=== PATIENT | male | born 1950 | race Caucasian/White ===

== ENCOUNTER 2018-12-06 04:54 | Observation (INO) ==
[2018-12-06] MEDS ORDERED: ASPIRIN PO ONE (05:01)
--- NOTE | 2018-12-06 05:07 | PROVIDER DOCUMENTATION ---
HPI-Chest Pain - General Chief Complaint: Chest Pain Stated Complaint: CHEST PAINS Time Seen by Provider: 12/06/18 05:07 Source: patient Allergies/Adverse Reactions: Patient Allergies Allergy/AdvReac Type Severity Reaction Status Date / Time Iodinated Contrast- Oral and AdvReac SWELLING Verified 12/06/18 05:00 IV Dye [IV Dye] - History of Present Illness-CP Nature of Presenting Problem: Patient is a 68 year old white male with history of diabetes, hyperlipidemia, and tachycardia who presents with 7/10 sharp left sided chest pain since last night. Denies history of CAD. Patient given 325mg aspirin on arrival. Followed by Dr. Cabral. Location: reports: other (left sided chest pain- tender to palpation) Quality of Pain: reports: sharp Onset/Duration: this evening Timing: still present Context/Activities at Onset: reports: none Modifying Factors: improves with: palpation Associated Symptoms: denies: diaphoresis, fever/chills, nausea, vomiting, weakness Nitro Today/Relief: no nitro taken today Aspirin Treatment Today: provided by ED Prior Chest Pain/Cardiac Workup: reports: no prior cardiac workup Recently Seen Here or By Another Healthcare Provider: No Review of Systems - Adult - REVIEW OF SYSTEMS - ADULT Constitutional: denies: chills, fever Eyes: reports: no symptoms reported Ears, Nose, Mouth & Throat: reports: no symptoms reported Cardiovascular: reports: see HPI Respiratory: reports: shortness of breath. denies: cough Gastrointestinal: denies: abdominal pain, nausea, vomiting Genitourinary: denies: dysuria Integumentary: reports: no symptoms reported Psychiatric: reports: anxiety Endocrine: reports: no symptoms reported Hematologic/Lymphatic: reports: no symptoms reported Allergic/Immunologic: reports: no symptoms reported All Other Systems: Reviewed and Negative Past History - Adult - PAST MEDICAL HISTORY-ADULT Review of Records: reports: Old Records Reviewed, Nursing Assessment Review, Me dications Reviewed, Social history reviewed & non-contributory. Major Childhood Illnesses: reports: denies history Cardiovascular: reports: other (tachycardia) Respiratory: reports: denies history Gastrointestinal: reports: denies history Genitourinary: reports: denies history Musculoskeletal: reports: denies history Neurological: reports: denies history Psychiatric: reports: denies history Endocrine/Immune: reports: denies history Diabetes Type: Type 2 - PRIOR SURGERIES/PROCEDURES Surgical/Procedure History: reports: orthopedic (extremity) (shoulder surgeries) Physical Exam-General - PHYSICAL EXAM-ADULT Initial Vital Signs Reviewed: Yes - CONSTITUTIONAL General Appearance: alert, no apparent distress, anxious, other (nondiaphoretic) - HEAD, EARS, NOSE, MOUTH & THROAT HENMT: normocephalic/atraumatic, moist mucous membranes - NECK Neck: non-tender, full range of motion, supple - RESPIRATORY Respiratory: lungs clear, other (tender to palpation over left chest, no crepitus) - CARDIOVASCULAR Cardiovascular: regular rate, rhythm - GASTROINTESTINAL (ABDOMEN) Abdominal Exam: normal bowel sounds, non tender, soft - LYMPHATIC Lymphatic: no adenopathy - MUSCULOSKELETAL Back Exam: normal inspection, no CVA tenderness Extremity: normal range of motion, non-tender, other (no homans) Peripheral Pulses: radial (R): 2+, radial (L): 2+ - SKIN Integumentary: normal color, normal turgor, warm/dry - NEUROLOGIC Neurologic: grossly normal - PSYCHIATRIC Psych/Mental Status: anxious - HEART Score HEART Score: History: Slightly Suspicious HEART Score: ECG: Normal HEART Score: Age: > or = 65 Years HEART Score: Risk Factors for Atherosclerotic Disease: > or = 3 Risk Factors or History of Atherosclerotic Disease HEART Score: Troponin: < or = Normal Limit Total HEART Score:: 4 Progress - PLAN OF CARE/RESULTS Progress/Plan/Lab Results: Vital Signs - 8 hr 12/06/18 04:56 Temperature 97.6 F Pulse Rate 66 Respiratory Rate 20 Blood Pressure 179/90 O2 Sat by Pulse Oximetry 99 Laboratory Results - last 24 hr 12/06/18 12/06/18 12/06/18 05:09 05:09 05:09 WBC 8.21 RBC 4.59 L Hgb 14.4 Hct 40.8 L MCV 88.9 MCH 31.4 H MCHC 35.3 RDW Std Deviation 12.8 Plt Count 277 MPV 10.1 Immature Gran % (Auto) 0.1 Neut % (Auto) 40.5 L Lymph % (Auto) 36.9 [place] % (Auto) 10.6 H Eos % (Auto) 10.7 H Baso % (Auto) 1.2 H Immature Gran # (Auto) 0.01 Neut # (Auto) 3.32 Lymph # (Auto) 3.03 [place] # (Auto) 0.87 H Eos # (Auto) 0.88 H Baso # (Auto) 0.10 PT INR PTT (Actin FS) D-Dimer, Quantitative Sodium 138 Potassium 4.2 Chloride 102 Carbon Dioxide 24 L Anion Gap 12 BUN 18 Creatinine 1.2 Estimated GFR/1.73 m2 > 60 BUN/Creatinine Ratio 15 Glucose 213 H Calculated Osmolality 284 Calcium 9.3 Total Bilirubin 0.30 AST 20 ALT 19 Alkaline Phosphatase 52 Creatine Kinase 77 Troponin T [id number]-[id number] Pept 53 Total Protein 7.3 Albumin 4.3 Globulin 3.0 Albumin/Globulin Ratio 1.0 12/06/18 12/06/18 05:09 05:09 WBC RBC Hgb Hct MCV MCH MCHC RDW Std Deviation Plt Count MPV Immature Gran % (Auto) Neut % (Auto) Lymph % (Auto) [place] % (Auto) Eos % (Auto) Baso % (Auto) Immature Gran # (Auto) Neut # (Auto) Lymph # (Auto) [place] # (Auto) Eos # (Auto) Baso # (Auto) PT 11.8 INR 0.83 PTT (Actin FS) 28.9 D-Dimer, Quantitative 0.30 Sodium Potassium Chloride Carbon Dioxide Anion Gap BUN Creatinine Estimated GFR/1.73 m2 BUN/Creatinine Ratio Glucose Calculated Osmolality Calcium Total Bilirubin AST ALT Alkaline Phosphatase Creatine Kinase Troponin T < 0.010 Cdg-[id number]-Wuzucxkafjj Pept Total Protein Albumin Globulin Albumin/Globulin Ratio Orders Category Date Time Status Cardiac Monitoring DIRECTED Care 12/06/18 05:02 Active Oxygen Therapy- ED Nursing DIRECTED Care 12/06/18 05:02 Active Saline Loc NOW Care 12/06/18 05:02 Active CHEST-PORTABLE [RAD] Stat Exams 12/06/18 05:23 Taken CBC WITH ELECTRONIC DIFF [HEME] Stat Lab 12/06/18 05:09 Completed CK PROFILE [SP CHEM] Stat Lab 12/06/18 05:09 Completed COMPREHENSIVE METABOLIC PANEL [CHEM] Stat Lab 12/06/18 05:09 Completed D-DIMER [COAG] Stat Lab 12/06/18 05:09 Completed PRO B-NATRIURETIC PEPTIDE Stat Lab 12/06/18 05:09 Completed PROTIME WITH INR [COAG] Stat Lab 12/06/18 05:09 Completed PTT [COAG] Stat Lab 12/06/18 05:09 Completed TROPONIN T Stat Lab 12/06/18 05:09 Completed Aspirin Med 12/06/18 05:01 Discontinued 325 mg PO NOW ONE Ketorolac [Toradol] Med 12/06/18 05:27 Discontinued 30 mg IV NOW ONE Morphine Med 12/06/18 05:58 Discontinued 4 mg IV NOW ONE Ondansetron [Zofran] Med 12/06/18 05:58 Discontinued 4 mg IV STAT ONE CP/SOB/Palp >45 yrs of Age Stat Oth 12/06/18 05:01 Ordered EKG [EKG] Stat Ther 12/06/18 05:02 Draft EKG [EKG] Stat Ther 12/06/18 06:00 Draft Result Diagrams: 12/06/18 05:09 12/06/18 05:09 - EKG 1 Time of EKG reading by physician:: 05:00 EKG Read and Signed by:: Dmitri Sutherland Rate: 65 Rhythm: NSR Gardner: normal SC Interval: normal Comments: no STEMI - CONSULTS/PCP/HOSPITALIST Notification #1 *Consult/PCP/Hospitalist*: Dr. Brunson, hospitalist Time Discussed: 06:20 Consult Disposition: Admit Departure - Departure Date of Disposition Decision: 12/06/18 Time of Disposition Decision: 06:20 DIAGNOSIS: Chest pain Qualifiers: Chest pain type: unspecified Qualified Code(s): R07.9 - Chest pain, unspecified Disposition: ADMITTED INPATIENT 09 Certified Medical Emergency: Emergent Condition: Stable Referrals and Follow-Ups: None,PCP [Primary Care Provider] - - Critical Care Note This patient required my direct & personal management of CC.: No Attestation - Physician/ MARIO Attestation Patient care was provided by Advanced Practice Provider:: No The physician spent face to face time with patient:: Yes Advanced Practice Provider documentation review:: Supervising physician onsite and consulted in the evaluation and care of this patient. The physician did have a face to face encounter with the patient.
[2018-12-06 05:23] LABS: BASO% 1.2 % (0.0-0.8); EOS# 0.88 X1000 (0.0-0.7); EOS% 10.7 % (0.0-10.0); HEMATOCRIT 40.8 % (42.0-52.0); HEMOGLOBIN 14.4 g/dL (14.0-18.0); IMM GRAN# 0.01 X1000 (0.0-0.04); IMM GRAN% 0.1 % (0.0-0.5); LYMPH# 3.03 X1000 (1.2-3.4); LYMPH% 36.9 % (20.5-51.1); MCH 31.4 PG (27-31); MCHC 35.3 g/dL (33-37); MCV 88.9 FL (81-99); MONO# 0.87 X1000 (0.11-0.59); MONO% 10.6 % (1.7-9.3); MPV 10.1 FL (7.4-10.4); NEUT# 3.32 X1000 (1.4-6.5); NEUT% 40.5 % (42.2-75.2); PLT 277 X1000 (130-400); RBC 4.59 XMIL (4.7-6.1); RDW 12.8 % (11.5-14.5); WBC 8.21 X1000 (4.8-10.8)
[2018-12-06] MEDS ORDERED: TORADOL IV ONE (05:27)
[2018-12-06 05:42] LABS: AGAP 12; ALBUMIN 4.3 g/dL (3.5-5.0); ALKALINE PHOSPHATASE 52 U/L (32-122); BUN 18 mg/dL (8-22); CALCIUM 9.3 mg/dL (8.8-10.2); CHLORIDE 102 mmol/L (98-107); CK PROFILE 77 U/L (24-204); COSMO 284; CREATININE 1.2 mg/dL (0.7-1.2); ESTIMATED GFR > 60; GLUCOSE 213 mg/dL (70-104); GOT 20 U/L (10-34); GPT 19 U/L (10-44); POTASSIUM 4.2 mmol/L (3.5-5.1); SODIUM 138 mmol/L (136-145); TCO2 24 mmol/L (25-35); TOTAL PROTEIN 7.3 g/dL (6.3-8.3)
[2018-12-06 05:43] LABS: INR 0.83; PROTIME 11.8 Seconds (11.0-16.0); PTT 28.9 Seconds (22.3-41.8)
[2018-12-06 05:45] LABS: D-DIMER 0.3 ug/mLFEU (0.0-0.52)
[2018-12-06] MEDS ORDERED: MORPHINE IV ONE (05:58)
[2018-12-06] MEDS ORDERED: ZOFRAN IV ONE (05:58)
--- NOTE | 2018-12-06 06:19 | EKG Report ---
Test Performed on : 12/06/2018 06:04:39 AM Test Reason : pain Blood Pressure : / mmHG Vent. Rate : 066 BPM Atrial Rate : 066 BPM P-R Int : 160 ms QRS Dur : 088 ms QT Int : 412 ms P-R-T Axes : 267 013 047 degrees QTc Int : 431 ms Unusual P axis, possible ectopic atrial rhythm. Abnormal ECG When compared with ECG of 06-DEC-2018 04:59, (Unconfirmed) Ectopic atrial rhythm. has replaced Sinus rhythm. Unconfirmed Result
--- NOTE | 2018-12-06 06:20 | EKG Report ---
Test Performed on : 12/06/2018 04:59:10 AM Test Reason : cp Blood Pressure : / mmHG Vent. Rate : 065 BPM Atrial Rate : 065 BPM P-R Int : 158 ms QRS Dur : 088 ms QT Int : 420 ms P-R-T Axes : 052 020 059 degrees QTc Int : 436 ms Normal sinus rhythm. Normal ECG No previous ECGs available Unconfirmed Result
[2018-12-06] MEDS ORDERED: MORPHINE IV PRN (06:24)
[2018-12-06] MEDS ORDERED: ZOFRAN IV PRN (06:25)
--- NOTE | 2018-12-06 06:45 | Diag Imaging Result Doc PS360 ---
CHEST-PORTABLE - 12/06/2018 INDICATION: chest pain COMPARISON: 01/03/2011 FINDINGS: The lungs are normally expanded and clear. Heart size and mediastinal contours are normal. No pneumothorax or pleural effusion. IMPRESSION: Negative exam. Electronically signed by Flex Mcdonald 12/06/2018 6:43 AM
--- NOTE | 2018-12-06 09:47 | EKG Report ---
Test Performed on : 12/06/2018 07:55:51 AM Test Reason : repeat Blood Pressure : / mmHG Vent. Rate : 067 BPM Atrial Rate : 067 BPM P-R Int : 160 ms QRS Dur : 084 ms QT Int : 412 ms P-R-T Axes : 044 020 062 degrees QTc Int : 435 ms Normal sinus rhythm. Normal ECG When compared with ECG of 06-DEC-2018 06:04, (Unconfirmed) Sinus rhythm. has replaced Ectopic atrial rhythm. Unconfirmed Result
--- NOTE | 2018-12-06 10:03 | HISTORY AND PHYSICAL ---
CHIEF COMPLAINT: Chest pain. HISTORY OF PRESENT ILLNESS: This is a 68-year-old gentleman with a history of diabetes mellitus, high cholesterol, who presents to the emergency room complaining of left-sided chest pain that radiated into his left arm and hand. He stated that he woke up early in the night having a sharp chest pain that was just around his left breast area. He stated he did have some nausea during this time although he was able to go back to sleep. He was awakened again just prior to coming to the ER. This time, he stated that he had a sharp chest pain. He felt like someone was sitting on his chest. He did have some shortness of breath. He had nausea. He did have diaphoresis. The pain radiated down his left arm into his left hand and "his left hand felt funny." He stated that his left hand felt funny. He woke his up, came to the emergency room. He denied any palpitations, any syncope or dizziness, any prior episodes of chest pain. PAST MEDICAL HISTORY: 1. Diabetes mellitus. 2. High cholesterol. PAST SURGICAL HISTORY: Shoulder surgery. SOCIAL HISTORY: He denies alcohol or illicit drug use. He quit smoking 20 years ago. ALLERGIES: Oral and IV iodinated contrast which causes swelling. HOME MEDICATIONS: A list will be obtained by the nursing staff and once verified, will review and restart as appropriate. REVIEW OF SYSTEMS: Discussed with patient with pertinent positives stated in the HPI. He denied any syncope, dizziness, any palpitations, any night sweats, recent weight loss or weight gain, any cough, fever, chills, PND, orthopnea, any vomiting, diarrhea, constipation, black or bloody vomitus or stools, any hematuria, dysuria, frequency, urgency. PHYSICAL EXAMINATION: GENERAL: This is a 68-year-old gentleman who is sitting up in the stretcher in the emergency room in no distress. VITAL SIGNS: Blood pressure is 122/79 with a heart rate of 66, respirations are 19, temperature is 97.5 degrees oral with room air sat 98% to 100%. EYES: Pupils equal, round, react to light. EOMs are intact. Sclerae are anicteric. HEENT: Head is normocephalic, atraumatic. Mucous membranes are moist. NECK: Supple with trachea midline. CARDIOVASCULAR: Regular rate and rhythm. S1 and S2 are appreciated. He has no lower extremity edema. Peripheral pulses are palpable x4 extremities. Calves are nontender bilateral. Chest wall is nontender to palpation. PULMONARY: Breath sounds are clear with no increased work of breathing noted. Chest rises and falls symmetric with respiration. Chest wall is nontender to palpation. GASTROINTESTINAL: Abdomen is soft, nontender, nondistended with bowel sounds in all 4 quadrants. NEUROLOGIC: He is alert oriented x3. SKIN: Warm and dry. LABORATORY DATA: WBC is 8.2 with hemoglobin 14.4, hematocrit 40.8, platelets of 277,000. D-dimer 0.30. Sodium is 138, potassium 4.2, BUN 18, creatinine 1.2 with a glucose of 213. Troponin is negative. EKG reveals sinus rhythm at a rate of [address]-T changes. Chest x-ray reveals negative exam. Lungs are normally expanded and clear. Heart size and mediastinal contours are normal. No pneumothorax or pleural effusion. ASSESSMENT AND PLAN: 1. Chest pain. The patient will be admitted to the medical-surgical floor. He will be placed on telemetry. We will repeat a cardiac profile. We will check a stat troponin and cardiac profile now and then q.6 hours x3. Will repeat EKG. Will continue a daily aspirin at present. 2. Diabetes mellitus. He will be placed on pattern blood glucose with sliding scale insulin and once home medications are verified, then we will review and decide on continuing these. 3. History of high cholesterol. We will continue his home medications. 4. Deep venous thrombosis prophylaxis. Will use Lovenox 5. Gastrointestinal prophylaxis, Prilosec. We will give the patient diabetic diet today. He will be NPO after midnight. Hopefully, we will plan on a Lexiscan in the morning as long as he rules out. Further treatments pending hospital course. Dictated by RJ Dmaico for Kareem Flores MD cc: RJ Damico MD
--- NOTE | 2018-12-06 14:26 | EKG Report ---
Test Performed on : 12/06/2018 2:15:29 PM Test Reason : CHEST PAIN Blood Pressure : / mmHG Vent. Rate : 062 BPM Atrial Rate : 062 BPM P-R Int : 156 ms QRS Dur : 082 ms QT Int : 432 ms P-R-T Axes : 044 027 076 degrees QTc Int : 438 ms Normal sinus rhythm. Normal ECG When compared with ECG of 06-DEC-2018 07:55, (Unconfirmed) No significant change was found Confirmed by Venkat Whatley MD ([id number]) on 12/09/2018 2:28:20 AM
[2018-12-06] MEDS ORDERED: LOVENOX SUBQ SCH (15:00)
[2018-12-06] MEDS ORDERED: LOVENOX SUBQ ONE (15:40)
[2018-12-06 15:41] LABS: CK-MB 77.26 ng/mL (0.0-5.0)
[2018-12-06] MEDS: HUMALOG (PARKWAY) SUBQ SCH ×3 (15:44→22:22)
[2018-12-06] MEDS: LOPRESSOR PO SCH ×2 (15:52→21:19)
[2018-12-06] MEDS: NITROGLYCERIN TOP SCH ×2 (15:52→21:19)
--- NOTE | 2018-12-06 16:09 | CARDIOLOGY CONSULTATION ---
DATE: 12/06/2018 HISTORY OF PRESENT ILLNESS: Mr. Vargas Pittman is a 68-year-old gentleman with history of diabetes, hyperlipidemia, comes with complaints of chest discomfort. Patient has been healthy prior to this. No previous cardiac history. Had sharp episodes of chest pain which were followed by retrosternal chest heaviness with radiation to the left arm and radiating to the back as well. His admission electrocardiogram revealed normal sinus rhythm, normal EKG. First set of cardiac enzymes were normal. His chest x-ray was normal. Associated with the chest pain, he did have diaphoresis which he says was mild, felt slightly nauseous as well. REVIEW OF SYSTEMS: A 14-point review of system was done.GI System: There is no hematemesis or melena. There is no vomiting. Central nervous system: No focal weakness to suggest a CVA or TIA. Genitourinary System: There is no dysuria or hematuria. Respiratory System: There is no history of cough, expectoration, hemoptysis. There is no history of fevers or chills. PAST MEDICAL HISTORY: 1. Diabetes. 2. Hypercholesterolemia. PAST SURGICAL HISTORY: 1. Shoulder surgery. ALLERGIES: He is allergic to IVP dye. FAMILY HISTORY: There is no premature family history of coronary artery disease. SOCIAL HISTORY: He does not smoke. He quit smoking 20 years back. There is no history of alcohol or illicit drug abuse. MEDICATIONS AT HOME: Included: 1. Pravastatin 20. 2. Glipizide 5. 3. Lexapro 10. 4. Metformin 500 mg tablets 2000 daily. 5. Losartan 50. 6. Atorvastatin 40. This was added in the hospital. Pravastatin was discontinued. PHYSICAL EXAMINATION: Vital Signs: Blood pressure 144/74. Cardiovascular System: Normal jugular venous pressure. There was no thyromegaly. No carotid bruit. First and second heart sounds were heard. There was no S3 gallop. Respiratory System: Normal air entry. There were no crepitations or rhonchi. Abdomen: Soft, nontender. There was no guarding or rigidity. Bowel sounds were heard. Central nervous system: Alert and oriented. Moving all 4 extremities. Extremities: Examination of extremities revealed no pedal edema. HEENT: Atraumatic, normocephalic. Pupils were equal and reacting to light. LABORATORY EXAMINATION: Revealed sodium 138, potassium 4.2, BUN 18, creatinine 1.2. CPK was normal. Cardiac enzymes: Troponin when he came in was 0.010, subsequent troponin was 0.55 with a CK of 703, CK-MB of 77. WBC 8.2, hemoglobin 14.4, hematocrit 40, platelet count of 277,000. ASSESSMENT AND PLAN: Mr. Vargas Pittman is a 68-year-old gentleman with history of diabetes and hyperlipidemia who comes with complaints of severe retrosternal chest discomfort with radiation to the back, down the arms. Patient has been having intermittent episodes of chest pain since then. Patient has non-Q-wave myocardial infarction. RECOMMENDATIONS: 1. We have discussed and recommended that he be transferred to [facility] for left heart catheterization. Risks, benefits, and alternatives were explained. Patient will be transferred to [facility] in the morning for left heart catheterization. 2. In addition to aspirin, I will give him Lovenox. 3. We will also start him on beta blockers, Lopressor 25 mg twice daily, an inch of nitroglycerin paste. 4. Diabetes. Hold his metformin and continue with his other medications in addition to fingersticks and add insulin as required. 5. He is allergic to IVP dye. We will give him prednisone, Zantac, and Benadryl started today as well as tonight. 6. Hyperlipidemia. He was on pravastatin. We will put him on Lipitor 40 mg a day. Thank you for the consult. We will follow hospital course. cc: MD Leonid Day MD
[2018-12-06 20:48] LABS: CK-MB 107.3 ng/mL (0.0-5.0)
[2018-12-06] MEDS ORDERED: LIPITOR PO SCH (21:00)
[2018-12-06] MEDS ORDERED: BENADRYL PO SCH (21:00)
[2018-12-06] MEDS ORDERED: LOPRESSOR PO SCH (21:00)
[2018-12-06] MEDS: ZANTAC PO SCH (21:19)
[2018-12-06] MEDS: PREDNISONE PO SCH (21:20)
--- NOTE | 2018-12-07 00:38 | HISTORY AND PHYSICAL ---
ADDENDUM: Patient seen and examined by myself. Full note dictated and discussed with nurse practitioner. Patient presented to the hospital noting had chest pain midsternal left side. It also felt like his left hand was numb at times. Did have some diaphoresis as well. We will admit him to the hospital to rule out [place]. If his enzymes are negative, we will consider stress testing in the morning. cc: Kareem Flores MD
[2018-12-07 03:02] LABS: HEMATOCRIT 38.6 % (42.0-52.0); HEMOGLOBIN 13.2 g/dL (14.0-18.0); MCH 30.5 PG (27-31); MCHC 34.2 g/dL (33-37); MCV 89.1 FL (81-99); MPV 10.4 FL (7.4-10.4); RBC 4.33 XMIL (4.7-6.1); RDW 12.8 % (11.5-14.5); WBC 12.26 X1000 (4.8-10.8)
[2018-12-07 03:51] LABS: CALCIUM 9.2 mg/dL (8.8-10.2); CREATININE 1.4 mg/dL (0.7-1.2); POTASSIUM 5.2 mmol/L (3.5-5.1); TOTAL BILIRUBIN 0.5 mg/dL (0.20-1.00); TOTAL PROTEIN 6.9 g/dL (6.3-8.3)
[2018-12-07 04:06] LABS: CK INDEX 8.6 (0.0-2.5)
[2018-12-07] MEDS: NITROGLYCERIN TOP SCH ×2 (04:15→08:52)
[2018-12-07] MEDS: HUMALOG (PARKWAY) SUBQ SCH (06:13)
--- NOTE | 2018-12-07 06:29 | EKG Report ---
Test Performed on : 12/07/2018 06:02:47 AM Test Reason : CP Blood Pressure : / mmHG Vent. Rate : 056 BPM Atrial Rate : 056 BPM P-R Int : 156 ms QRS Dur : 082 ms QT Int : 468 ms P-R-T Axes : 155 -23 146 degrees QTc Int : 451 ms Unusual P axis, possible ectopic atrial bradycardia. Low voltage QRS Inferior infarct , age undetermined T wave abnormality, consider lateral ischemia Abnormal ECG When compared with ECG of 06-DEC-2018 20:08, (Unconfirmed) Ectopic atrial rhythm. has replaced Sinus rhythm. Confirmed by Venkat Whatley MD ([id number]) on 12/09/2018 2:27:20 AM
--- NOTE | 2018-12-07 06:55 | EKG Report ---
Test Performed on : 12/06/2018 8:08:56 PM Test Reason : CP Blood Pressure : / mmHG Vent. Rate : 054 BPM Atrial Rate : 054 BPM P-R Int : 158 ms QRS Dur : 082 ms QT Int : 462 ms P-R-T Axes : 037 008 070 degrees QTc Int : 438 ms Sinus bradycardia. Otherwise normal ECG No previous ECGs available Confirmed by Venkat Whatley MD ([id number]) on 12/09/2018 2:28:01 AM
[2018-12-07] MEDS ORDERED: PRILOSEC PO SCH (07:00)
[2018-12-07 07:35] VITALS: BP 99/57
[2018-12-07] MEDS: PREDNISONE PO SCH (08:21)
[2018-12-07] MEDS: ZANTAC PO SCH (08:21)
[2018-12-07] MEDS: LOPRESSOR PO SCH (08:22)
[2018-12-07] MEDS ORDERED: ASPIRIN PO SCH (09:00)
[2018-12-07] MEDS ORDERED: LOVENOX SUBQ SCH (09:00)
--- NOTE | 2018-12-07 23:43 | ECHO REPORT ---
ORDER DATE: 12/06/2018 MEASUREMENTS: Septal thickness 1.1. Left ventricular internal diameter in diastole 5.2, posterior wall thickness 1.1, left ventricular internal diameter in systole 3.0, aortic root 3.3. SUMMARY: 1. Adequate quality study. 2. The aortic valve is trileaflet and opens normally on 2-dimensional images. Peak gradient across the aortic valve is approximately 5 mmHg. There is trace aortic regurgitation. Mitral, tricuspid and pulmonic valves are without evidence of structural abnormality with mild mitral regurgitation, trace tricuspid regurgitation and very mild pulmonic insufficiency. The aortic root is normal size. 3. Normal left ventricular dimensions demonstrated. Estimated left ventricular ejection fraction appears to be at least 65%. No regional wall motion abnormalities are evident. Left atrium, right atrium and right ventricle are normal in size, with normal right ventricular systolic function. 4. No pericardial effusion. 5. Appearance of inferior vena cava suggests normal central venous pressure. CONCLUSIONS: 1. Mild mitral regurgitation. 2. Normal left ventricular systolic function without wall motion abnormality evident. cc: MD Zita Whiteside CRNP
--- NOTE | 2018-12-08 05:05 | DISCHARGE SUMMARY ---
ADMISSION DATE: 12/06/2018 DISCHARGE DATE: 12/07/2018 DIAGNOSES: 1. Vnk-HF-cembmihml myocardial infarction. 2. Diabetes mellitus. 3. Hyperlipidemia. CONSULTS: Rickey Paiz MD DIAGNOSTICS: Chest x-ray revealed the lungs are normally expanded and clear. Heart size and mediastinal contours are normal. No pneumothorax or pleural effusions seen. HOSPITAL COURSE: Mr. Pittman presented to the emergency room after having a sudden onset of left- sided chest pain that radiated into his left arm and hand. This did wake him from his sleep. Initial troponins were negative in the emergency room starting at 0.010 at 5 a.m., although they did slowly climb, having a troponin of 0.402 at 1:23 on the . They continued to climb and at 2:35 on the he had a troponin of 1.290. CK-MB did climb also and was 85 at 2:30 on the . Throughout the hospitalization he did have episodes of chest pressure that he rated as a 1/10, although he did not call the staff and alert them of his pain at the time of it happening, although he did make the statement just prior to being discharged in transfer to [facility]. At the time of transfer he denied having any pain. He was evaluated by Dr. Paiz who arranged his transfer to [facility]. DISCHARGE PHYSICAL EXAMINATION: Discharge vital signs: Blood pressure was 99/57 with a heart rate of 60, respirations 16, temperature 98 degrees with room air saturations 97%. Cardiovascular: Regular rate and rhythm. S1 and S2 appreciated. No S3. No murmur. Pulmonary: Breath sounds clear. No increased work of breathing noted. Gastrointestinal: Abdomen soft, nontender, nondistended, with bowel sounds in all 4 quadrants. Extremities: He has no lower extremity edema. Calves nontender bilateral with peripheral pulses palpable x4 extremities. Neurologic: Alert and oriented x3. DISCHARGE MEDICATIONS: The patient had received Lovenox. The patient was n.p.o. in transfer to [facility] for a pending heart catheterization. The patient is allergic to oral and IVP dye, therefore, he was premedicated with prednisone, Benadryl and Zantac on the afternoon and night prior to discharge. He is being discharged in transfer to [facility] in stable condition. This is a greater than 30 minute discharge. Dictated by RJ Damico for Kareem Flores MD cc: RJ Damico MD
--- NOTE | 2018-12-08 08:33 | DISCHARGE SUMMARY ---
ADMISSION DATE: 12/06/2018 DISCHARGE DATE: 12/07/2018 ADDENDUM: Patient seen and examined by myself. Full note dictated and discussed with nurse practitioner. Patient will be transferred to [facility] for left heart catheterization. His troponin has continued to rise, although he is currently having no chest pain. Most recent troponin is 1.29. Please see full dictation. cc: Kareem Flores MD
== END 2018-12-07 10:00 | disposition short-term general hospital (02) ==
LOC: P.ED 04:54 → P.MEDSURG 04:54 → SUATTDRO 08:28 → P.MEDSURG 08:31
PROVIDERS: ATTEND Family Medicine
CPT/HCPCS: 36415; 71010; 71045; 80053; 82550; 82553; 82948; 83880; 84484; 85025; 85027; 85379; 85610; 85730; 93005; 93306; 94761; A9270; J1650; J1815; J1885; J2270; J2405; J7506; J7512; XXXXX